=== PATIENT | female | born 1960 | race Caucasian/White ===

== ENCOUNTER 2019-02-19 16:38 | Emergency (ER) | payer OTHER ==
[~2019-02-19 16:38] MED LIST: Iopamidol 370 76% 100 ML VIAL ONE
[2019-02-19] MEDS ORDERED: Ondansetron PF 4 MG/2 ML Vial ONE ×2 (17:10→18:09)
[2019-02-19] MEDS ORDERED: Acetaminophen 500 MG TAB ONE (17:10)
[2019-02-19] MEDS ORDERED: Sodium Chloride 0.9% 1,000 ML ONE ×2 (17:10→18:22)
[2019-02-19 17:20] LABS: #Basophils 0.1 thou/uL (0.0-0.2); #Eosinphils 0.1 thou/uL (0.0-0.7); #Lymphocytes 1.7 thou/uL (1.20-3.40); #Monocytes 0.5 thou/uL (0.11-0.59); #Neutrophils 8.1 thou/uL (1.40-6.50); %Basophils 0.9 % (0.0-1.0); %Eosinophils 1.4 % (0.0-10.0); %Lymphocytes 16.1 % (21.0-51.0); %Neutrophils 76.7 % (42.0-75.0); Hemoglobin 7.8 g/dL (12.0-16.0); Mean Corpuscular Hemoglobin 27.7 pg (27.0-31.0); Mean Corpuscular Volume 89.6 fL (78.0-98.0); Mean Platelet Volume 5.6 fL (7.4-10.4); Platelet Count 571 thou/uL (130-400); Red Blood Cell (RBC) Count 2.81 mill/uL (4.20-5.40); White Blood Cell (WBC) Count 10.6 thou/uL (4.8-10.8)
[2019-02-19 17:33] LABS: ALT (SGPT) 31 U/L (8-55); AST (SGOT) 29 U/L (5-34); Albumin 3.6 g/dL (3.5-5.0); Alkaline Phosphatase 134 U/L (40-150); Anion Gap 16 mmol/L (10-20); BUN (Urea Nitrogen) 27 mg/dL (9.8-20.1); Bilirubin, Total 0.2 mg/dL (0.2-1.2); Calc. Creatinine Clearance 0 mL/min (70-130); Calcium 9.4 mg/dL (7.8-10.44); Carbon Dioxide 23 mmol/L (22-29); Chloride 106 mmol/L (98-107); Estimated GFR-MDRD 82; Globulin 2.8 g/dL (2.4-3.5); Glucose 105 mg/dL (70-105); Lipase 13 U/L (8-78); Potassium 3.7 mmol/L (3.5-5.1); Protein, Total 6.4 g/dL (6.0-8.3); Sodium 141 mmol/L (136-145)
[2019-02-19 18:12] LABS: Bilirubin Small (Negative); Blood, Urine Negative (Negative); Clarity Clear (Clear); Glucose, Urine (Dipstick) Negative (Negative); Leukocyte Trace (Negative); Nitrite Negative (Negative); Protein, Urine (Dipstick) Negative (Neg-Trace)
[2019-02-19 18:14] LABS: Bacteria/HPF None Seen HPF (None Seen); RBC/HPF 0-3 HPF (0-3)
--- NOTE | 2019-02-19 18:20 | CT ---
EXAM: CT abdomen and pelvis with IV contrast PROVIDED CLINICAL HISTORY: Abdominal pain COMPARISON: None FINDINGS: The visualized lung bases are free of significant opacity. There is a markedly abnormal appearance to the mucosa of the region of the gastric antrum. It appears prominently thickened anteriorly, demonstrating a somewhat irregular and masslike margin. There is a small amount of fluid seen about the duodenal bulb. There is no evidence for free intraperitoneal a ir. The solid abdominal organs demonstrate an unremarkable CT appearance. No evidence for bowel obstruction. There is no evidence for appendicitis. 2.8 cm left adnexal fat den sity mass compatible with dermoid. No regional lymph node enlargement apparent. The regional major vascular structures appear unremarkab le. The osseous structures demonstrate no concerning lytic or blastic lesions. Simple lipoma within the subcutaneous adipose layer of the right posterolateral chest wall at the 10th 11th rib interspace . IMPRESSION: 1. Marked abnormality of the gastric mucosa in the region of the gastric antrum. Differential conside rations would include gastric ulcer disease and gastric neoplasm. GI consultation is recommended. 2. 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
[2019-02-19] MEDS ORDERED: Pantoprazole 40 MG VIAL ONE (18:22)
[2019-02-19] MEDS ORDERED: Morphine 4 MG/ML VIAL ONE (19:19)
--- NOTE | 2019-02-19 20:31 | RAD ---
EXAM: Portable chest PROVIDED CLINICAL HISTORY: Fever COMPARISON: None FINDINGS: Cardiac and mediastinal silhouette is within normal limits. No focal consolidation, pleural fluid or pneumothorax evident. IMPRESSION: No evidence for an acute cardiopulmonary process.
[2019-02-19] MEDS ORDERED: Sodium Chloride 0.9% 500 ML ONE (22:51)
[2019-02-19 23:10] LABS: #Basophils 0.1 thou/uL (0.0-0.2); #Eosinphils 0.2 thou/uL (0.0-0.7); #Monocytes 0.6 thou/uL (0.11-0.59); #Neutrophils 7.2 thou/uL (1.40-6.50); %Basophils 0.7 % (0.0-1.0); %Eosinophils 1.9 % (0.0-10.0); %Lymphocytes 19.6 % (21.0-51.0); %Monocytes 5.8 % (0.0-10.0); %Neutrophils 72.1 % (42.0-75.0); Hemoglobin 6.8 g/dL (12.0-16.0); Mean Corpuscular HGB CONC 30.8 g/dL (32.0-36.0); Mean Corpuscular Hemoglobin 27.9 pg (27.0-31.0); Mean Corpuscular Volume 90.3 fL (78.0-98.0); Platelet Count 503 thou/uL (130-400); RBC Distribution Width 13.6 % (11.5-14.5); Red Blood Cell (RBC) Count 2.45 mill/uL (4.20-5.40)
== END 2019-02-20 02:20 | disposition short-term general hospital (02) ==
LOC: NAV ERS 16:38
DX: R10.9 Unspecified abdominal pain (principal); R10.816 Epigastric abdominal tenderness; E86.0 Dehydration; D64.9 Anemia, unspecified; R50.9 Fever, unspecified; Z79.899 Other long term (current) drug therapy
CPT/HCPCS: 36415; 36430; 71045; 74177; 80053; 81003; 81015; 83605; 83690; 85025; 86850; 86900; 86901; 87086; 87804; 96361; 96374; 96375; 96376; C9113; J2270; J2405; J7050; P9016; Q9967

== ENCOUNTER 2020-06-05 06:56 | Emergency (ER) | payer BC ==
[2020-06-05] MEDS ORDERED: Sodium Chloride 0.9% 1,000 ML ONE ×2 (07:22→08:06)
[2020-06-05] MEDS ORDERED: Pantoprazole 40 MG VIAL ONE (07:22)
[2020-06-05] MEDS ORDERED: Promethazine HCl 25 MG/ML VIAL ONE (07:22)
[2020-06-05 07:28] LABS: #Basophils 0.1 thou/uL (0.0-0.2); #Eosinphils 0.2 thou/uL (0.0-0.7); #Lymphocytes 1.4 thou/uL (1.20-3.40); #Monocytes 0.3 thou/uL (0.11-0.59); #Neutrophils 6.6 thou/uL (1.40-6.50); %Basophils 1.1 % (0.0-1.0); %Eosinophils 2.3 % (0.0-10.0); %Lymphocytes 15.9 % (21.0-51.0); %Monocytes 3.9 % (0.0-10.0); %Neutrophils 76.8 % (42.0-75.0); Hemoglobin 12.7 g/dL (12.0-16.0); Mean Corpuscular HGB CONC 31.9 g/dL (32.0-36.0); Mean Corpuscular Hemoglobin 29.7 pg (27.0-31.0); Mean Corpuscular Volume 93.2 fL (78.0-98.0); Mean Platelet Volume 7.6 fL (7.4-10.4); Platelet Count 244 thou/uL (130-400); Red Blood Cell (RBC) Count 4.27 mill/uL (4.20-5.40); White Blood Cell (WBC) Count 8.6 thou/uL (4.8-10.8)
[2020-06-05 07:43] LABS: ALT (SGPT) 24 U/L (8-55); AST (SGOT) 26 U/L (5-34); Albumin 4.3 g/dL (3.5-5.0); Alkaline Phosphatase 64 U/L (40-110); Anion Gap 16 mmol/L (10-20); BUN (Urea Nitrogen) 17 mg/dL (9.8-20.1); Bilirubin, Total 0.3 mg/dL (0.2-1.2); Calc. Creatinine Clearance 0 mL/min (70-130); Calcium 9.9 mg/dL (7.8-10.44); Carbon Dioxide 25 mmol/L (22-29); Chloride 107 mmol/L (98-107); Estimated GFR-MDRD 79; Globulin 2.3 g/dL (2.4-3.5); Glucose 128 mg/dL (70-105); Lipase 31 U/L (8-78); Potassium 3.6 mmol/L (3.5-5.1); Protein, Total 6.6 g/dL (6.0-8.3); Sodium 144 mmol/L (136-145)
[2020-06-05] MEDS ORDERED: Ondansetron PF 4 MG/2 ML Vial ONE (08:03)
[2020-06-05] MEDS ORDERED: Metoclopramide HCl 10 MG/2 ML VIAL ONE (08:59)
[2020-06-05] MEDS ORDERED: Iopamidol 370 76% 100 ML VIAL ONE (09:00)
[2020-06-05] MEDS ORDERED: Ketorolac Tromethamine 30 MG/ML VIAL ONE (10:26)
--- NOTE | 2020-06-05 11:00 | CT ---
CT ABDOMEN AND PELVIS WITH IV CONTRAST: 06/05/20 PROVIDED CLINICAL HISTORY: Abdominal pain. COMPARISON: 02/19/2019 FINDINGS: The visualized lung bases are free of significant opacity. Interval postoperative changes are seen involving the stomach, compatible with the provided clinical history of a partial gastrectomy. The liver, spleen, pancreas, kidneys and adrenal glands demonstrate an unremarkable CT appearance. There is no bowel dilatation, inflammatory foraminal stenosis or free air apparent. The appendix appe ars normal. There is trace free pelvic fluid. Left ovarian dermoid is redemonstrated. The regional major vascular structures appear unremarkable. The osseous structures demonstrate no concerning lytic or blastic lesions. IMPRESSION: Trace free pelvic fluid, etiology and significance uncertain. Otherwise unremarkable CT abdomen and p kassidy. POS: KAREN
== END 2020-06-05 10:38 | disposition home or self-care (01) ==
LOC: NAV ERS 06:56
DX: R11.2 Nausea with vomiting, unspecified (principal); D64.9 Anemia, unspecified
CPT/HCPCS: 36416; 74177; 80053; 83690; 85025; 96365; 96375; C9113; J1885; J2405; J2550; J2765; J7050; Q9967